=== PATIENT | male | born 1980 | race African-American/Black ===

== ENCOUNTER 2020-06-07 12:18 | Emergency (ER) | payer MEDICAID ==
[~2020-06-07] VITALS: Ht 182.9 cm; Wt 84.1 kg
[2020-06-07 12:24] VITALS: BP 154/87
[2020-06-07] MEDS ORDERED: ACETAMINOPHEN 325MG TABLET PO STA (13:26)
[2020-06-07] MEDS ORDERED: IPRATROPIUM/ALBUTEROL 0.5-3(2.5)MG/3ML NEB HHN ONE (13:30)
[2020-06-07 14:27] LABS: HEMATOCRIT. 45.2 % (42.0-52.0); HEMOGLOBIN. 15.1 g/dL (14.0-18.0); MEAN CORPUSCULAR HEMOGLOBIN 28.4 pg (28.0-32.0); MEAN CORPUSCULAR VOLUME 84.7 fL (80.0-94.0); MEAN PLATELET VOLUME 7.5 fl (7.4-10.4); PLATELET 246 x1000/uL (130-400); RED BLOOD CELL COUNT 5.34 mill/uL (4.7-6.1); RED CELL DISTRIBUTION WIDTH 14.6 % (11.6-14.6)
[2020-06-07 14:32] LABS: CHLORIDE 105 mEq/L (98-107)
[2020-06-07 14:46] LABS: CLARITY URINE CLEAR (CLEAR); COLOR URINE YELLOW (YELLOW); KETONES URINE NEGATIVE (NEGATIVE); LEUKOCYTE ESTERASE URINE NEGATIVE (NEGATIVE); NITRITE URINE NEGATIVE (NEGATIVE); OCCULT BLOOD URINE 1+ (NEGATIVE); PH URINE 5.5 (4.5-8.0); PROTEIN URINE 2+ (NEGATIVE); SPECIFIC GRAVITY URINE 1.027 (1.005-1.030)
[2020-06-07 15:01] LABS: PLATELET ESTIMATE NORMAL
== END 2020-06-07 15:58 | disposition home or self-care (01) ==
LOC: ER 12:18
DX: J45.901 Unspecified asthma with (acute) exacerbation (principal); Z20.828 Contact with and (suspected) exposure to other viral communicable diseases
CPT/HCPCS: 36415; 71045; 80053; 81003; 85025; 87635; 93005; 94640; 99285; Z7610